=== PATIENT | female | born 1970 | race Caucasian/White ===

== ENCOUNTER 2016-11-14 13:03 | Day surgery (SDC) | payer OTHER ==
[~2016-11-14] VITALS: Ht 160 cm; Wt 56.7 kg
[~2016-11-14 13:03] MED LIST: ABILIFY5 MG PO; ADVAIR 250/501 DISK IH; ATARAX,VISTARIL25 MG PO; CANDESARTAN CILE8 MG PO; CIPRO500 MG PO; CYCLOBENZAPRINE5 MG PO; CYMBALTA30 MG PO; CYMBALTA60 MG PO; ELAVIL10 MG PO; FLAGYL500 MG PO; FLEXERIL5 MG PO; GABAPENTIN300 MG PO; HYDROCODON-ACE1 EA11 PO; IBUPROFEN800 MG PO; IMITREX100 MG PO; MELOXICAM7.5 MG PO; NICODERM CQ1 EAC1 TD; NICOTINE PATCH1 EAC2 TD; NORCO 5/3251 TABLET PO; OMEPRAZOLE20 M2 PO; PANTOPRAZOLE SO40 MG PO; POTASSIUM CHLO20 ME1 PO; PREDNISONE10 MG PO; PREDNISONE5 MG PO; PROAIR HFA8.5 GM IH; PROBIOTIC1 EAC1 PO; RESTORIL15 MG PO; SINGULAIR10 MG PO; TOPAMAX100 MG PO; TOPIRAMATE100 MG PO; TYLENOL WITH C1 EACH PO; VENLAFAXINE HCL75 MG PO; VENTOLIN HFA18 GM IH; VITAMIN B122500 MCG PO; VITAMIN D5000 UNIT PO; XANAX0.25 MG PO; ZITHROMAX Z-PA250 MG PO
[2016-11-15] MEDS ORDERED: PROTONIX40 MG PO (13:19)
== END 2016-11-14 14:45 | disposition home or self-care (01) ==
LOC: PAIN 13:03 → SDC 13:45 → PAIN 14:45
DX: M47.816 Spondylosis without myelopathy or radiculopathy, lumbar region (principal); F41.9 Anxiety disorder, unspecified; M54.5 Low back pain; J44.9 Chronic obstructive pulmonary disease, unspecified; K21.9 Gastro-esophageal reflux disease without esophagitis; F17.200 Nicotine dependence, unspecified, uncomplicated
CPT/HCPCS: J1030; J2250; J3010; S0020

== ENCOUNTER 2016-11-19 07:53 | Day surgery (SDC) | payer OTHER ==
[~2016-11-19] VITALS: Ht 160 cm; Wt 56.7 kg
[~2016-11-19 07:53] MED LIST changes: +PROTONIX40 MG PO
== END 2016-11-19 10:20 | disposition home or self-care (01) ==
LOC: PAIN 07:53 → SDC 08:30 → PAIN 08:30
DX: M47.896 Other spondylosis, lumbar region (principal); M54.16 Radiculopathy, lumbar region; M54.30 Sciatica, unspecified side; J45.909 Unspecified asthma, uncomplicated; J44.9 Chronic obstructive pulmonary disease, unspecified; Z79.51 Long term (current) use of inhaled steroids
CPT/HCPCS: J1030; J2250; J3010; S0020

== ENCOUNTER 2017-02-06 07:38 | Day surgery (SDC) | payer OTHER ==
[~2017-02-06] VITALS: Ht 160 cm; Wt 54.4 kg
[~2017-02-06 07:38] MED LIST changes: +CARAFATE1 GM PO; +TORADOL10 MG PO
== END 2017-02-06 09:18 | disposition home or self-care (01) ==
LOC: PAIN 07:38
PROC: 3E0T3TZ Introduction of Destructive Agent into Peripheral Nerves and Plexi, Percutaneous Approach (ICD-10-PCS; principal; 2017-02-06)
PROC: BR161ZZ Fluoroscopy of Lumbar Facet Joint(s) using Low Osmolar Contrast (ICD-10-PCS; 2017-02-06)
DX: M47.816 Spondylosis without myelopathy or radiculopathy, lumbar region (principal); M54.5 Low back pain; F41.9 Anxiety disorder, unspecified; J44.9 Chronic obstructive pulmonary disease, unspecified; J45.909 Unspecified asthma, uncomplicated; K21.9 Gastro-esophageal reflux disease without esophagitis; F17.210 Nicotine dependence, cigarettes, uncomplicated; Z79.891 Long term (current) use of opiate analgesic
CPT/HCPCS: J1030; J2250; J3010; S0020

== ENCOUNTER 2017-02-13 09:56 | Day surgery (SDC) | payer OTHER ==
[~2017-02-13] VITALS: Ht 160 cm; Wt 54.4 kg
== END 2017-02-13 11:00 | disposition home or self-care (01) ==
LOC: PAIN 09:56 → SDC 10:15 → PAIN 11:00
DX: M47.26 Other spondylosis with radiculopathy, lumbar region (principal); G89.29 Other chronic pain; J43.9 Emphysema, unspecified; J45.909 Unspecified asthma, uncomplicated; K21.9 Gastro-esophageal reflux disease without esophagitis; F41.8 Other specified anxiety disorders; F17.210 Nicotine dependence, cigarettes, uncomplicated; Z79.891 Long term (current) use of opiate analgesic; Z79.899 Other long term (current) drug therapy
CPT/HCPCS: J1030; J2250; J3010; S0020

== ENCOUNTER 2017-04-01 13:04 | Emergency (ER) | payer OTHER ==
[~2017-04-01] VITALS: Ht 160 cm; Wt 49.0 kg
[2017-04-01 14:38] LABS: EOSINOPHIL (%) 0.7 % (0-5); EOSINOPHIL COUNT 0.1 K/uL (0-0.3); HEMATOCRIT 45.4 % (36.0-46.0); IMMATURE GRANULOCYTE (%) 0.1 % (0.0-0.7); LYMPHOCYTE COUNT 2.9 K/uL (1.0-2.8); MCHC 32.6 G/DL (30.0-36.0); MCV 98.3 FL (83-99); MEAN PLAT.VOLUME 10.3 uM^3 (9.5-12.4); MONOCYTE (%) 6.2 % (3-12); MONOCYTE COUNT 0.5 K/uL (0-0.8); NEUTROPHIL (%) 53.9 % (45-76); PLATELET COUNT 176 K/uL (156-360); RBC DIS.WIDTH-CV 12.7 % (11.8-14.6); RED BLOOD COUNT 4.62 M/uL (3.80-5.20); WHITE BLOOD COUNT 7.5 K/uL (4.1-10.2)
[2017-04-01 14:48] LABS: CHLORIDE 114 mEq/L (99-109); POTASSIUM 3.7 mEq/L (3.7-5.4); SODIUM 141 mEq/L (136-147)
[2017-04-01 14:50] LABS: GLUCOSE 87 mg/dL (70-99)
[2017-04-01 14:51] LABS: ANION GAP 8 MEQ/L (2-14)
[2017-04-01 14:53] LABS: GFR ESTIMATE (CALCULATED) > 59 mL/min/
[2017-04-01 14:54] LABS: UREA NITROGEN (BUN) 13 mg/dL (9-23)
[2017-04-01 17:04] LABS: QUANTITATIVE HCG < 4.0 MIU/ML
[2017-04-01] MEDS ORDERED: VANCOMYCIN125 MG/2.5 PO (17:09)
[2017-04-01 20:36] VITALS: BP 124/68
== END 2017-04-01 20:37 | disposition home or self-care (01) ==
LOC: EME 13:04
DX: A04.7 Enterocolitis due to Clostridium difficile (principal); E86.0 Dehydration; J44.9 Chronic obstructive pulmonary disease, unspecified; Z87.442 Personal history of urinary calculi; Z90.49 Acquired absence of other specified parts of digestive tract; F17.200 Nicotine dependence, unspecified, uncomplicated
CPT/HCPCS: 80048; 81003; 83605; 84702; 85025; 99281; 99285; J1885; J7030

== ENCOUNTER 2017-12-23 07:15 | Day surgery (SDC) | payer OTHER ==
[~2017-12-23] VITALS: Ht 160 cm; Wt 54.4 kg
[~2017-12-23 07:15] MED LIST changes: +BUSPAR10 MG PO; +LIPITOR10 MG PO; +MULTIPLE VITAM1 EAC4 PO; +PRILOSEC20 MG PO; +SYMBICORT60 INHALAT IH; +VANCOMYCIN125 MG/2.5 PO; -XANAX0.25 MG PO; +XANAX0.5 MG PO
== END 2017-12-23 08:55 | disposition home or self-care (01) ==
LOC: PAIN 07:15 → SDC 07:45 → PAIN 07:45
DX: M47.816 Spondylosis without myelopathy or radiculopathy, lumbar region (principal); M54.16 Radiculopathy, lumbar region; J44.9 Chronic obstructive pulmonary disease, unspecified; G89.29 Other chronic pain; E78.5 Hyperlipidemia, unspecified; F41.9 Anxiety disorder, unspecified; F17.200 Nicotine dependence, unspecified, uncomplicated; Z79.891 Long term (current) use of opiate analgesic
CPT/HCPCS: J1030; J2250; J3010; S0020

== ENCOUNTER 2017-12-30 07:32 | Day surgery (SDC) | payer OTHER ==
[~2017-12-30] VITALS: Ht 160 cm; Wt 54.4 kg
== END 2017-12-30 09:30 | disposition home or self-care (01) ==
LOC: PAIN 07:32 → SDC 08:00 → PAIN 09:30
DX: M47.816 Spondylosis without myelopathy or radiculopathy, lumbar region (principal); M62.830 Muscle spasm of back; F17.200 Nicotine dependence, unspecified, uncomplicated; M54.16 Radiculopathy, lumbar region; G89.29 Other chronic pain; M54.30 Sciatica, unspecified side; F41.9 Anxiety disorder, unspecified; J44.9 Chronic obstructive pulmonary disease, unspecified; E53.8 Deficiency of other specified B group vitamins; E78.5 Hyperlipidemia, unspecified; G43.909 Migraine, unspecified, not intractable, without status migrainosus; Z86.19 Personal history of other infectious and parasitic diseases
CPT/HCPCS: J1030; J2250; J3010; S0020